=== PATIENT | female | born 1965 | race Caucasian/White ===

== ENCOUNTER 2022-05-13 19:43 | Emergency (ER) | payer OTHER, SELFPAY ==
--- NOTE | 2022-05-13 19:51 | MHC.RECOVSUP ---
? Reason for consult Recovery support o Current location: [facility] o Identified substance use concern: Alcohol - Support ? Intervention: o Community resources provided o Harm reduction discussion ? Plan: <del>o</del> <del>Referral</del> <del>to</del> <del>[facility]</del> <del>o</del> <del>Bed</del> <del>search</del> <del>in</del> <del>progress</del> <del>to</del> <del>o</del> <del>Follow</del> <del>up</del> <del>tomorrow</del> <del>o</del> <del>Patient</del> <del>awaiting</del> <del>crisis</del> <del>evaluation</del> <del>o</del> <del>Patient</del> <del>to</del> <del>follow</del> <del>up</del> <del>with</del> <del>[facility]</del> <del>after</del> <del>discharge</del> ? Additional information: Met with Patient and did not want any services..
[2022-05-13 20:13] VITALS: BP 110/80; BP 130/79; PULSE 70; PULSE 94; RESP 14; TEMP 36.4; O2SAT 98; O2SAT 99; BMI 24.0
--- NOTE | 2022-05-13 20:58 | ED_ITS ---
HPI - General Adult General Chief complaint: ETOH/Substance Use Stated complaint: ETOH INTOX Time Seen by Provider: 05/13/22 20:44 Source: patient and EMS Mode of arrival: EMS Limitations: no limitations History of Present Illness HPI narrative: 56-year-old female with PMHx of alcohol abuse presenting sent in from her [facility] due to smelling of alcohol. The patient tells me that she is currently residing in a [facility] for recovering alcohol[facility] in the upon her arrival back there today they felt that she smelled like alcohol so she was sent to the hospital for evaluation. She tells me that she has not been drinking today, she denies using drugs. She states that she has been sober for some time. She st ates that she just needs medical clearance and would like to go back to her chcf however they will not allow her back in after 22:00 today. She denies any medical complaints at this time including SI, HI, hallucinations, chest pain, shortness of breath, abdominal pain, nausea, vomiting, headache, dizziness. Related Data Allergies Allergy/AdvReac Type Severity Reaction Status Date / Time Unable to Assess Allergy Unverified 05/13/22 20:44 Review of Systems Review of Systems: Constitutional : No Weight loss, No Fever, No Chills, No Fatigue, No Malaise ENT/Mouth : No sore throat, No Rhinorrhea Eyes: No Eye Pain, No Swelling, No Redness Cardiovascular : No Chest Pain, No SOB, No Dyspnea on Exertion, No Orthopnea, No Edema, No Palpitations Respiratory : No Cough, No Sputum, No Wheezing Gastrointestinal : No Nausea, No Vomiting, No Diarrhea, No Constipation, No abdominal Pain, No Hematochezia, No Melena Genitourinary : No Dysuria, No Urinary Frequency, No Hematuria, Musculoskeletal : No joint pain, No Myalgias, No Joint Swelling Skin : No Skin Lesions, No rash Neuro : No Weakness, No Numbness, No Dizziness, No Headache All other systems reviewed and are negative Yes all other systems are reviewed and are negative [facility] Past Medical History Attestation statement: The following information was validated with the patient. Source: old records reviewed and nursing notes reviewed Social History Social History Advance Directives: No Physical Exam ED Vital Signs: Vital Signs - 24 hr 05/13/22 20:13 05/13/22 21:10 Temperature 97.5 F 97.9 F Pulse Rate 70 72 Respiratory Rate 14 16 Blood Pressure 130/79 132/70 Pulse Oximetry 99 98 Oxygen Delivery Method Room Air Room Air BMI result Body Mass Index 24.0 VSS Appearance: Alert.? Oriented X3.? No acute distress.?Resting comfortably, no signs of intoxication. Ambulatory with a steady gait normal coordination. Head: Normocephalic, atraumatic, no step-offs or deformities Eyes: Pupils equal, round and reactive to light.? Neck: Normal inspection.? Neck supple.? CVS: Normal heart rate and rhythm.? Pulses normal.? Respiratory: No respiratory distress.? Breath sounds normal.? Abdomen: Soft and nontender.? Skin: Skin warm and dry.? Normal skin color.? Normal skin turgor.? Extremities: No lower extremity edema.? No calf ttp. 5/5 strength to bilateral upper and lower extremities Neuro: Oriented X 3.? No motor deficit.? No sensory deficit. CN 2-12 intact. No slurring of speech. Course Reevaluation(s) Reevaluation #1: CBC with no acute findings. Chemistry with no acute electrolyte abnormalities. Toxicology with an ethanol level of 98. VILLALTA & UA pending at this time. Time: 21:25 Reevaluation #2: Urine toxicology negative. Urine clean. At this time patient will be discharged. No need to keep patient in the emergency department, denies SI, HI. No need for psychiatric evaluation, patient denies medical complaints. At this time I feel w/ comfortable discharge. Time: 22:01 Medical Decision Making MDM Narrative Medical decision making narrative: 20:45 56 y/o F presenting for medical clearence. Sent in by her [facility] who suspected she was drinking alcohol today. Currently residing in a [facility] for recovering alcohol[facility]. PE benign, ambulatory with a steady gait, no slurred speech. Plan to obtain ethanol level and VILLALTA, medical clear and discharge home. Medical Records Medical records reviewed: Yes I reviewed the patient's medical records. Lab Data Lab results reviewed: Yes I reviewed the patient's lab results. Result diagrams: 05/13/22 21:00 05/13/22 21:00 Labs: Lab Results 05/13/22 05/13/22 05/13/22 Range/Units 21:00 21:00 21:17 WBC 5.9 (4.8-10.8) X10*3/uL RBC 3.83 L (4.20-5.50) X10*6/uL Hgb 12.1 (12.0-16.0) g/dl Hct 36.4 L (37.0-47.0) % MCV 95.0 (80.0-98.0) fL MCH 31.6 (27.0-33.0) pg MCHC 33.2 (31.0-35.0) g/dl RDW 12.5 (11.0-16.0) % Plt Count 269 (160-400) X10*3/uL MPV 10.8 (9.4-12.3) fL Immature Gran % (Auto) 0.2 (0.0-0.4) % Neut % (Auto) 48.1 (45-73) % Lymph % (Auto) 44.6 H (20-40) % [place] % (Auto) 4.7 (2-11) % Eos % (Auto) 1.4 (0-4) % Baso % (Auto) 1.0 (0-2) % Lymph # (Auto) 2.6 (1.2-4.9) X10*3/uL [place] # (Auto) 0.3 (0.1-1.2) X10*3/uL Eos # (Auto) 0.1 (0.0-0.4) X10*3/uL Baso # (Auto) 0.1 (0.0-0.2) X10*3/uL Abs Immat Gran (auto) 0.01 (0.00-0.03) X10*3/uL Absolute Neuts (auto) 2.8 (2.0-8.3) x10*3/uL Absolute Nucleated RBC 0.000 (0.0-0.012) X10*3/uL Nucleated RBC % (auto) 0.0 (0.0-0.2) /100WBC Sodium 137 (135-145) mmol/L Potassium 3.7 (3.3-5.1) mmol/L Chloride 104 (96-108) mmol/L Carbon Dioxide 19 L (22-29) mmol/L Anion Gap 18 (12-20) BUN 11 (9-16) mg/dL Creatinine 0.65 (0.5-1.4) mg/dL Estim Creat Clear Calc 82.5 Estimated GFR > 60 Random Glucose 85 (60-115) mg/dL Calcium 8.6 (8.4-10.2) mg/dL Urine Color Urine Appearance Urine pH (5.0-9.0) Ur Specific [place] (1.005-1.025) Urine Protein (Neg-Trace) mg/dL Urine Glucose (UA) (Negative) mg/dL Urine Ketones (Negative) mg/dL Urine Blood (Negative) Urine Nitrite (Negative) Ur Leukocyte Esterase (Negative) Urine Opiates Screen Not Detected (Not Detect) Urine Fentanyl Screen Not Detected (Not Detect) Ur Barbiturates Screen Not Detected (Not Detect) Ur Phencyclidine Scrn Not Detected (Not Detect) Ur Amphetamines Screen Not Detected (Not Detect) U Benzodiazepines Scrn Not Detected (Not Detect) Urine Cocaine Screen Not Detected (Not Detect) U Marijuana (THC) Screen Not Detected (Not Detect) Ethyl Alcohol 98 mg/dL 05/13/22 Range/Units 21:17 WBC (4.8-10.8) X10*3/uL RBC (4.20-5.50) X10*6/uL Hgb (12.0-16.0) g/dl Hct (37.0-47.0) % MCV (80.0-98.0) fL MCH (27.0-33.0) pg MCHC (31.0-35.0) g/dl RDW (11.0-16.0) % Plt Count (160-400) X10*3/uL MPV (9.4-12.3) fL Immature Gran % (Auto) (0.0-0.4) % Neut % (Auto) (45-73) % Lymph % (Auto) (20-40) % [place] % (Auto) (2-11) % Eos % (Auto) (0-4) % Baso % (Auto) (0-2) % Lymph # (Auto) (1.2-4.9) X10*3/uL [place] # (Auto) (0.1-1.2) X10*3/uL Eos # (Auto) (0.0-0.4) X10*3/uL Baso # (Auto) (0.0-0.2) X10*3/uL Abs Immat Gran (auto) (0.00-0.03) X10*3/uL Absolute Neuts (auto) (2.0-8.3) x10*3/uL Absolute Nucleated RBC (0.0-0.012) X10*3/uL Nucleated RBC % (auto) (0.0-0.2) /100WBC Sodium (135-145) mmol/L Potassium (3.3-5.1) mmol/L Chloride (96-108) mmol/L Carbon Dioxide (22-29) mmol/L Anion Gap (12-20) BUN (9-16) mg/dL Creatinine (0.5-1.4) mg/dL Estim Creat Clear Calc Estimated GFR Random Glucose (60-115) mg/dL Calcium (8.4-10.2) mg/dL Urine Color Yellow Urine Appearance Clear Urine pH 6.0 (5.0-9.0) Ur Specific [place] <= 1.005 (1.005-1.025) Urine Protein Negative (Neg-Trace) mg/dL Urine Glucose (UA) Negative (Negative) mg/dL Urine Ketones Negative (Negative) mg/dL Urine Blood Negative (Negative) Urine Nitrite Negative (Negative) Ur Leukocyte Esterase Negative (Negative) Urine Opiates Screen (Not Detect) Urine Fentanyl Screen (Not Detect) Ur Barbiturates Screen (Not Detect) Ur Phencyclidine Scrn (Not Detect) Ur Amphetamines Screen (Not Detect) U Benzodiazepines Scrn (Not Detect) Urine Cocaine Screen (Not Detect) U Marijuana (THC) Screen (Not Detect) Ethyl Alcohol mg/dL Critical Care Time Critical Care Time Critical Care Time: No Discharge Plan Discharge Clinical Impression: Normal physical exam, Elevated ETOH level Patient Disposition: Home, Self-Care Additional Instructions: Take your medications as prescribed. If you were prescribed antibiotics today, it is important that you take your medication to their entirety, do not skip any doses, do not finish them early. Follow-up with your primary care provider this week. Return to the emergency department with new or worsening symptoms. Such as fevers, chills, chest pain, shortness of breath, nausea, vomiting, dizziness, headache, vision changes, lethargy In case of emergency call 911 Ethanol was elevated- 98 Labs- reassuring UA- no infection VILLALTA- negative Referrals: Physician,None [Primary Care Provider] - 2 days Stand Alone Forms: Work/School Release
[2022-05-13 21:03] LABS: MANUAL DIFF FLAG NO
[2022-05-13 21:05] LABS: Basophils Absolute Auto 0.1 X10*3/uL (0.0-0.2); Eosinophils Absolute Auto 0.1 X10*3/uL (0.0-0.4); Eosinophils Percent Auto 1.4 % (0-4); Hematocrit 36.4 % (37.0-47.0); Hemoglobin 12.1 g/dl (12.0-16.0); Imm Gran Abs Auto 0.01 X10*3/uL (0.00-0.03); Imm Gran Pct Auto 0.2 % (0.0-0.4); Lymphocytes Absolute Auto 2.6 X10*3/uL (1.2-4.9); Lymphocytes Percent Auto 44.6 % (20-40); Mean Corpuscular HGB Conc 33.2 g/dl (31.0-35.0); Mean Corpuscular Hemoglobin 31.6 pg (27.0-33.0); Mean Platelet Volume 10.8 fL (9.4-12.3); Monocytes Absolute Auto 0.3 X10*3/uL (0.1-1.2); Monocytes Percent Auto 4.7 % (2-11); Neutrophils Absolute Auto 2.8 x10*3/uL (2.0-8.3); Neutrophils Percent Auto 48.1 % (45-73); Platelet Count 269 X10*3/uL (160-400); Red Blood Count 3.83 X10*6/uL (4.20-5.50); Red Cell Distribution Width 12.5 % (11.0-16.0); White Blood Count 5.9 X10*3/uL (4.8-10.8)
[2022-05-13 21:10] VITALS: BP 132/70; PULSE 72; RESP 16; TEMP 36.6; O2SAT 98
[2022-05-13 21:20] LABS: Anion Gap 18 (12-20); Blood Urea Nitrogen 11 mg/dL (9-16); Calcium 8.6 mg/dL (8.4-10.2); Carbon Dioxide 19 mmol/L (22-29); Chloride 104 mmol/L (96-108); Creatinine Clr Calc Pharmacy 82.5; Estimated Glomerular Filt Rate > 60; Ethanol 98 mg/dL; Glucose Random 85 mg/dL (60-115); Potassium 3.7 mmol/L (3.3-5.1); Sodium 137 mmol/L (135-145)
[2022-05-13 21:34] LABS: Appearance Urine Clear; Color Urine Yellow; Glucose Urine UA Negative (Negative); Leukocyte Esterase Urine Negative (Negative); Nitrite Urine Negative (Negative); Specific Gravity - Urine <= 1.005 (1.005-1.025); Urine Blood Negative (Negative); Urine Ketones Negative (Negative); Urine Protein Negative (Neg-Trace)
[2022-05-13 21:44] LABS: Amphetamine Screen Urine Not Detected (Not Detect); Barbiturates, Urine Not Detected (Not Detect); Benzodiazepines Screen Urine Not Detected (Not Detect); Cannabinoid Screen Urine Not Detected (Not Detect); Cocaine Screen Urine Not Detected (Not Detect); Fentanyl, urine Not Detected (Not Detect); Opiate Screen Urine Not Detected (Not Detect); Phencyclidine Screen Urine Not Detected (Not Detect)
== END 2022-05-13 22:08 | disposition home or self-care (01) ==
PROVIDERS: Physician Assistant; Emergency Provider Emergency Medicine
DX: Z02.2 Encounter for examination for admission to residential institution (principal); F10.10 Alcohol abuse, uncomplicated; Y90.4 Blood alcohol level of 80-99 mg/100 ml
CPT/HCPCS: 36415; 80048; 80307; 81003; 82077; 85025; 99283

== ENCOUNTER 2024-05-26 14:10 | Emergency (ER) | payer OTHER, SELFPAY ==
[2024-05-26] VITALS (8 sets, daily range): BP systolic 96–121; BP diastolic 52–73; PULSE 63–121; RESP 12–24; TEMP 36.4–37.2; O2SAT 95–100; BMI 21.2
--- NOTE | ~2024-05-26 | CT_ITS ---
EXAMINATION: CT ABDOMEN AND PELVIS WITHOUT CONTRAST CLINICAL INFORMATION: No bowel movement for one week. Rectal bleeding COMPARISON: None available. TECHNIQUE: Multidetector volumetric imaging was performed from the superior aspect of the liver through the pubic symphysis. Sagittal and coronal reformatted images were obtained on the technologist's workstation. This CT examination was performed using dose optimization techniques as appropriate, variously including the following: *Automated exposure control *Adjustment of mA and/or kV according to patient size (this includes techniques or standardized protocols for targeted exams where dose is matched to indication/reason for exam; i.e. extremities or head) *Use of iterative reconstruction technique DLP: 404 mGy-cm FINDINGS: LUNG BASES: The visualized lung bases are unremarkable. LIVER, GALLBLADDER, AND BILIARY TREE: The liver is normal in size, shape, and attenuation. No focal hepatic lesion or biliary ductal dilatation is present. The gallbladder is unremarkable with no evidence of radiopaque gallstones, gallbladder wall thickening, or obvious pericholecystic inflammatory changes. PANCREAS: Unremarkable. SPLEEN: Unremarkable. ADRENAL GLANDS: Unremarkable. KIDNEYS AND URETERS: The kidneys are normal in size, shape, and attenuation. No hydronephrosis, hydroureter, or calculi seen. No perinephric stranding. BLADDER: Empty and difficult to evaluate GASTROINTESTINAL TRACT: The small and large bowel are unremarkable. There is colonic diverticulosis without diverticulitis. The appendix is not seen with certainty but there is no evidence of appendicitis. ABDOMINAL WALL: No significant hernia is appreciated. LYMPH NODES: Normal. VASCULAR: Calcific atherosclerotic changes are present in the aorta and iliofemoral vessels. There is no evidence of an abdominal aortic aneurysm.. PELVIC VISCERA: The uterus and adnexa are unremarkable. OSSEOUS STRUCTURES: Compression fractures are noted involving the superior endplates of T12, L3 and L5, likely not acute CT/CT abdomen pelvis wo IV con IMPRESSION: 1. A cause for the patient's rectal bleeding has not been found. This study does not exclude the presence of a colonic mass and colonoscopy is recommended. 2. Incidental note made of colonic diverticulosis without diverticulitis, compression fractures T12, L3 and L5 and other findings described above. Fleischner guidelines were followed. Electronically signed by: Sachin Cadet MD 05/26/2024 06:51 PM EDT
--- NOTE | 2024-05-26 14:24 | PC.NURSE ---
pt alert and oriented x 4 upon ED arrival. tearful. seemingly paranoid at times. follows commands appropriately. calm/cooperative. vss and up to date. biba from [facility] on a section 12 d/t bright red blood on toilet paper x 1 month. per staff at [facility] - bright red blood in toilet bowl [employer]. staff noted protruding hemorrhoid during assessment. pt denies any dizziness/lightheadedness. only endorses lower abd pain when attempting to have BM. labs obtained/sent to lab. no sob/wob noted. respirations even/unlabored. plan of care ongoing. call lea placed within reach.
[2024-05-26 14:41] LABS: Basophils Percent Auto 0.6 % (0-2); Eosinophils Absolute Auto 0.1 X10*3/uL (0.0-0.4); Eosinophils Percent Auto 2.6 % (0-4); Hemoglobin 10.4 g/dl (12.0-16.0); Imm Gran Abs Auto 0.02 X10*3/uL (0.00-0.03); Imm Gran Pct Auto 0.4 % (0.0-0.4); Lymphocytes Absolute Auto 1.3 X10*3/uL (1.2-4.9); Lymphocytes Percent Auto 25.8 % (20-40); MANUAL DIFF FLAG SCAN; Mean Corpuscular HGB Conc 33.5 g/dl (31.0-35.0); Mean Corpuscular Volume 98.4 fL (80.0-98.0); Mean Platelet Volume 10.7 fL (9.4-12.3); Monocytes Percent Auto 20.8 % (2-11); Neutrophils Absolute Auto 2.5 x10*3/uL (2.0-8.3); Neutrophils Percent Auto 49.8 % (45-73); Platelet Count 172 X10*3/uL (160-400); Red Blood Count 3.15 X10*6/uL (4.20-5.50); Red Cell Distribution Width 13.8 % (11.0-16.0); SCAN SMEAR FLAG 1
[2024-05-26 14:56] LABS: Alanine Aminotransferase 82 U/L (0-31); Albumin Level 3.7 g/dL (3.5-5.0); Alkaline Phosphatase 77 U/L (39-117); Anion Gap 15 (12-20); Aspartate Amino Transferase 41 U/L (5-31); Bilirubin Total 0.5 mg/dL (0.0-1.0); Blood Urea Nitrogen 17 mg/dL (9-16); Calcium 9.1 mg/dL (8.4-10.2); Carbon Dioxide 28 mmol/L (22-29); Chloride 102 mmol/L (96-108); Estimated Glomerular Filt Rate > 60; Glucose Random 115 mg/dL (60-115); Potassium 2.7 mmol/L (3.3-5.1); Sodium 142 mmol/L (135-145); Total Protein 6.1 g/dL (6.5-8.0)
--- NOTE | 2024-05-26 14:56 | PC.NURSE ---
critical lab value - potassium of 2.7 received at this time. Dr. Maurer notified/aware.
--- NOTE | 2024-05-26 14:57 | ECG_ITS ---
Test Reason : LOW POTISSUM Blood Pressure : / mmHG Vent. Rate : 078 BPM Atrial Rate : 078 BPM P-R Int : 164 ms QRS Dur : 094 ms QT Int : 432 ms P-R-T Axes : 057 029 024 degrees QTc Int : 492 ms Normal sinus rhythm Prolonged QT Abnormal ECG No previous ECGs available Referred By: Miriam Busby Electronically Signed By:GAGANDEEP MAYEN
[2024-05-26 15:01] LABS: SLIDE REVIEW VERIFIED
[2024-05-26] MEDS: Potassium Chloride/H20 10 MEQ/100 ML PIGGYBACK 100 MEQ IV ×2 (15:09→16:22)
[2024-05-26] MEDS: Potassium Chloride Packet 20 MEQ PACKET 60 MEQ PO (15:10)
[2024-05-26 15:13] LABS: Magnesium 1.6 mg/dL (1.6-2.6)
--- NOTE | 2024-05-26 15:24 | PC.NURSE ---
pt placed on classroom monitor d/t most recent lab value. monitor displaying nsr. ekg performed by tech. 18gIV placed in the right upper form - wrapped for safety precautions. pt c/o burning at IV site - provider notified/aware. 1L NS administered per verbal order. respirations remain even/unlabored. plan of care ongoing. call lea placed within reach.
--- NOTE | 2024-05-26 15:27 | MHC.EDTECH ---
This pct assumed care of patient at 1500 ,vitals taken and ekg done and was read by Provider ,Patient resting with eyes closed ,Call lea within Pt reach .
--- NOTE | 2024-05-26 16:25 | PC.NURSE ---
2nd bag of K+ infusing at this time. pt tolerating well. respirations remain even/unlabored.
--- NOTE | 2024-05-26 17:34 | ED.GENADULT ---
HPI - General Adult General Chief complaint: General Medical Stated complaint: SECTION 21 Time Seen by Provider: 05/26/24 17:05 Source: patient, EMS and old records reviewed Mode of arrival: EMS Limitations: no limitations History of Present Illness ED Provider: DR. Cordoba HPI narrative: 58-year-old female who presented from [facility] where she treated there for acute psychosis, patient was referred to us for evaluation of bright red blood per rectum and evaluation of constipation for the past 1 week patient did not have a bowel movement, patient reported passing gas, reported remote history of laparoscopic surgery of endometriosis otherwise patient do not remember any other surgery, patient reported decreased p.o. intake, no nausea, no vomiting, intermittent lower abnormal cramps. Bright red blood on the toilet paper after trying to have a bowel movement, patient reported no bowel movement for 1 week. Related Data Allergies Allergy/AdvReac Type Severity Reaction Status Date / Time morphine AdvReac Itching Verified 05/26/24 14:26 Review of Systems Review of Systems: all other systems are reviewed and are negative Constitutional: Reports as per HPI and Reports no additional constitutional complaints Eyes: Reports as per HPI and Reports no additional eye complaints Reports system reviewed and no additional complaints, except as documented Cardiovascular: Reports as per HPI and Reports no additional cardiovascular complaints Respiratory: Reports as per HPI and Reports no additional respiratory complaints Gastrointestinal: Reports as per HPI and Reports no additional gastrointestinal complaints Genitourinary: Reports no additional female genitourinary complaints Musculoskeletal: Reports no additional musculoskeletal complaints Skin/Breast: Reports system reviewed and no additional complaints, except as docu Psychiatric: Reports no additional psychiatric complaints Endocrine: Reports no additional endocrine complaints Hematologic/Lymphatic: Reports no additional hematologic/lymphatic complaints Allergic/Immunologic: Reports no additional allergic/immunologic complaints Reports system reviewed and no additional complaints, except as documented and Reports Abnormal speech present [facility] Social History Social History Alcohol intake: current Alcohol intake frequency: former alcohol drinker Smoked in Last 30 Days: Yes Use of substances other than those prescribed or required for medical reasons: No Advance Directives: No Advance Directives Information Provided: No Do you have a plan to hurt others: No Plan Patient : No Physical Exam ED Vital Signs: Vital Signs - 24 hr 05/26/24 14:20 05/26/24 15:27 05/26/24 16:26 Temperature 97.5 F 99.0 F 98.0 F Pulse Rate 99 72 76 Respiratory Rate 18 16 16 Blood Pressure 110/57 L 115/70 96/54 L Pulse Oximetry 99 100 96 Oxygen Delivery Method Room Air Room Air Room Air Oxygen Flow Rate 05/26/24 17:23 05/26/24 17:30 05/26/24 19:50 Temperature 98.5 F 98.8 F 98.6 F Pulse Rate 70 121 H 63 Respiratory Rate 16 24 H 12 Blood Pressure 105/52 L 121/70 109/69 Pulse Oximetry 100 100 100 Oxygen Delivery Method Room Air Nasal Cannula Room Air Oxygen Flow Rate 2 BMI result Body Mass Index 21.2 Vital signs have been reviewed and appear to be correct. Blood pressure elevated. Heart rate normal. Respiratory rate normal. Temperature normal. Oxygen saturation normal. Appearance: Alert. Oriented X3. No acute distress. Head: Normal external exam. Normocephalic. Atraumatic. No Cee signs noted. No raccoon eyes noted Eyes: PERRLA. EOMI. Conjunctiva and sclera normal. Eyelids normal. ENT: TM's Normal. Pharynx normal. Uvula midline. Moist mucous membranes. No trismus noted. No drooling noted. No muffled voice noted. Neck: Normal inspection. Neck supple. FROM. No adenopathy. Thyroid Normal. No meningeal signs. No neck mass noted. CVS: Normal heart rate and rhythm. Heart sound normal. No murmurs noted. Pulses normal throughout. Respiratory: No respiratory distress. Painless inspiration. Breath sounds normal. No wheezes/rales/rhonchi noted. Chest nontender. No accessory muscle usage noted or decreased air movement noted. Abdomen: Soft and nontender. Bowel sounds normal in all 4 quadrants. No distention noted. No organomegaly noted. No visible injury noted. Rectal exam: In the presence of a female plexiglas former, no external or internal hemorrhoids appreciated on the exam, no hard stool in the vault, stool is brown with no blood, guaiac is negative. Back: No CVA tenderness. Full range of motion noted. Skin: Skin warm and dry. Normal skin color. Normal skin turgor. No rashes/lesions/lacerations noted. Extremities: No lower extremity edema. Extremities exhibit normal range of motion. Extremities nontender. Neuro: Oriented X 3. Cranial nerve exam: II-XII are grossly intact No motor deficit. No sensory deficit. Reflexes normal. Course Reevaluation(s) Reevaluation #1: Patient with no abdominal pain, labs revealed hypokalemia was repleted and repeat potassium is better, CT abdomen pelvis is unremarkable, no anemia, stable to be discharged back to [facility] in follow-up as an outpatient with GI. Time: 20:00 Medications Administered Discontinued Medications Generic Name Dose Route Start Last Admin Trade Name Freq PRN Reason Stop Dose Admin Potassium Chloride 10 meq in 100 mls @ 100 mls/hr 05/26/24 15:00 05/26/24 17:29 Potassium Chloride/H20 IV 05/26/24 16:59 Infused Q1H CONNIE Infusion Potassium Chloride 60 meq 05/26/24 14:58 05/26/24 15:10 Potassium Chloride Packet 20 Meq Packet PO 05/26/24 14:59 60 meq ONCE ONE Administration Potassium Chloride 40 meq 05/26/24 17:22 05/26/24 17:55 Potassium Chloride Packet 20 Meq Packet PO 05/26/24 17:23 40 meq ONCE ONE Administration Medical Decision Making Differential Diagnosis Differential Diagnoses: The differential diagnosis associated with the presentation includes ( Constipation, small-bowel obstruction, colitis, hemorrhoids, severe anemia, electrolyte derangement.) Admission/Observation Consideration of admission/observation: Escalation of care including admission/observation considered Lab Data MDM Lab Attestation statement: I reviewed the patient's lab results. 05/26/24 14:33 05/26/24 19:58 Labs: Lab Results 05/26/24 05/26/24 Range/Units 14:33 19:58 WBC 5.0 (4.8-10.8) X10*3/uL RBC 3.15 L (4.20-5.50) X10*6/uL Hgb 10.4 L (12.0-16.0) g/dl Hct 31.0 L (37.0-47.0) % MCV 98.4 H (80.0-98.0) fL MCH 33.0 (27.0-33.0) pg MCHC 33.5 (31.0-35.0) g/dl RDW 13.8 (11.0-16.0) % Plt Count 172 D (160-400) X10*3/uL MPV 10.7 (9.4-12.3) fL Immature Gran % (Auto) 0.4 (0.0-0.4) % Neut % (Auto) 49.8 (45-73) % Lymph % (Auto) 25.8 (20-40) % [place] % (Auto) 20.8 H (2-11) % Eos % (Auto) 2.6 (0-4) % Baso % (Auto) 0.6 (0-2) % Lymph # (Auto) 1.3 (1.2-4.9) X10*3/uL [place] # (Auto) 1.0 (0.1-1.2) X10*3/uL Eos # (Auto) 0.1 (0.0-0.4) X10*3/uL Baso # (Auto) 0.0 (0.0-0.2) X10*3/uL Abs Immat Gran (auto) 0.02 (0.00-0.03) X10*3/uL Absolute Neuts (auto) 2.5 (2.0-8.3) x10*3/uL Absolute Nucleated RBC 0.000 (0.0-0.012) X10*3/uL Nucleated RBC % (auto) 0.0 (0.0-0.2) /100WBC Smear Tech's Comments VERIFIED Sodium 142 144 (135-145) mmol/L Potassium 2.7 L* 3.5 D (3.3-5.1) mmol/L Chloride 102 112 H (96-108) mmol/L Carbon Dioxide 28 25 (22-29) mmol/L Anion Gap 15 11 L (12-20) BUN 17 H 12 (9-16) mg/dL Creatinine 0.83 0.65 (0.5-1.4) mg/dL Estim Creat Clear Calc 63.0 80.4 Estimated GFR > 60 > 60 Random Glucose 115 95 (60-115) mg/dL Calcium 9.1 8.6 (8.4-10.2) mg/dL Magnesium 1.6 (1.6-2.6) mg/dL Total Bilirubin 0.5 0.4 (0.0-1.0) mg/dL AST 41 H 38 H (5-31) U/L ALT 82 H 70 H (0-31) U/L Alkaline Phosphatase 77 68 (39-117) U/L Total Protein 6.1 L 5.4 L (6.5-8.0) g/dL Albumin 3.7 3.2 L (3.5-5.0) g/dL Independent Interpretation I performed an independent interpretation of an: CT Scan ( abdomen and pelvis:1. A cause for the patient's rectal bleeding has not been found. This study does not exclude the presence of a colonic mass and colonoscopy is recommended. 2. Incidental note made of colonic diverticulosis without diverticulitis, compression fractures T12, L3 and L5 and othe) Radiology Impression Discussion of test interpretation with radiology: I have reviewed the radiologist's reading. Discharge Plan Discharge Clinical Impression: BRBPR (bright red blood per rectum), Acute hypokalemia Patient Disposition: Xfer [facility] Instructions: Rectal Bleeding (ED) Referrals: Mazin Hwang MD [Physician] - Print Language: Bermudian
[2024-05-26] MEDS: Potassium Chloride Packet 20 MEQ PACKET 40 MEQ PO (17:55)
--- NOTE | 2024-05-26 19:51 | PC.NURSE ---
this rn assumed care of pt, pt resting in stretcher, no acute distress noted. vss. normal sinus on tele 65-67bpm.
[2024-05-26 20:25] LABS: Alanine Aminotransferase 70 U/L (0-31); Albumin Level 3.2 g/dL (3.5-5.0); Alkaline Phosphatase 68 U/L (39-117); Anion Gap 11 (12-20); Aspartate Amino Transferase 38 U/L (5-31); Bilirubin Total 0.4 mg/dL (0.0-1.0); Blood Urea Nitrogen 12 mg/dL (9-16); Calcium 8.6 mg/dL (8.4-10.2); Carbon Dioxide 25 mmol/L (22-29); Chloride 112 mmol/L (96-108); Creatinine Clr Calc Pharmacy 80.4; Estimated Glomerular Filt Rate > 60; Glucose Random 95 mg/dL (60-115); Potassium 3.5 mmol/L (3.3-5.1); Sodium 144 mmol/L (135-145); Total Protein 5.4 g/dL (6.5-8.0)
--- NOTE | 2024-05-26 20:55 | PC.NURSE ---
report given to Latonia DAHL at [facility].
--- NOTE | 2024-05-26 22:12 | PC.NURSE ---
ems at bedside for report and to transfer pt back to [facility].
== END 2024-05-26 22:45 ==
PROVIDERS: Physician Assistant Medical; Emergency Provider Emergency Medicine
DX: K62.5 Hemorrhage of anus and rectum (principal); F23 Brief psychotic disorder; E87.3 Alkalosis; E87.6 Hypokalemia; R94.31 Abnormal electrocardiogram [ECG] [EKG]; R10.9 Unspecified abdominal pain; K59.00 Constipation, unspecified; Z79.899 Other long term (current) drug therapy
CPT/HCPCS: 36415; 74176; 80053; 83735; 85025; 93005; 96365; 99285; J3480